=== PATIENT | female | born 1945 | race Caucasian/White ===

== ENCOUNTER 2018-03-08 06:18 | Day surgery (SDC) | payer MEDICARE, BC ==
[2018-03-08] MEDS ORDERED: Lactated Ringers 1,000 ML IV SCH (07:00)
[2018-03-08] MEDS ORDERED: Midazolam 1 MG/ML 2 ML SDV ONE (07:22)
[2018-03-08] MEDS ORDERED: Propofol 200 MG/20 ML SDV ONE (07:22)
[2018-03-08] MEDS ORDERED: fentaNYL 100 MCG/2 ML SDV ONE (07:22)
--- NOTE | 2018-03-08 09:59 | OR ---
DATE OF PROCEDURE: 03/08/2018 PROCEDURE PERFORMED: Colonoscopy. FINDINGS: 1. Descending colon polyp, approximately 5 mm, completely removed using cold biopsy forceps. 2. Diverticulosis, mild to moderate, limited to sigmoid colon. COMPLICATIONS: None. CABIN SUPERVISOR: None. PREOPERATIVE DIAGNOSIS: Screening colonoscopy. POSTOPERATIVE DIAGNOSIS: Screening colonoscopy. RISKS: Risks, benefits, alternatives, and limitations including, but not limited to infection, bleeding, and perforation were explained to the patient, who wished to proceed. DESCRIPTION OF PROCEDURE: The patient was placed in left lateral decubitus position. Digital rectal exam was performed without abnormality. The scope was introduced and advanced atraumatically to the ileocecal valve. The scope was brought back to the ascending, transverse, descending colon, and retroflexed. The aforementioned-polyp was identified and completely removed. The diverticulosis would be described as mild to moderate and limited to sigmoid colon without any evidence of diverticulitis or bleeding. No abnormalities on retroflex. The patient tolerated the procedure well. Froilan Hightower MD /[id number] [facility] [address] [place] [id number]
== END 2018-03-08 09:34 | disposition home or self-care (01) ==
LOC: JP.SDS 06:18
PROVIDERS: ATTEND Surgery
DX: Z12.11 Encounter for screening for malignant neoplasm of colon (principal); K63.5 Polyp of colon; K57.30 Diverticulosis of large intestine without perforation or abscess without bleeding; E03.9 Hypothyroidism, unspecified; F41.9 Anxiety disorder, unspecified
CPT/HCPCS: 45380; J2250; J2704; J3010; J7120; 88305